=== PATIENT | male | born 1950 | race Caucasian/White ===

== ENCOUNTER 2025-05-18 22:04 | Emergency (ER) | payer MEDICARE, SELFPAY ==
[2025-05-18] VITALS (15 sets, daily range): BP systolic 121–149; BP diastolic 62–95; PULSE 67–95; RESP 14–23; TEMP 35.8; O2SAT 94–98
--- NOTE | 2025-05-18 22:00 | RT.EKG_ITS ---
APPROVED REPORT Exam: Resting ECG Reason for Exam: ams Patient Location: E HR:80 bpm ECG Measurements Heart Rate 80 AXIS OH 191 P 59 QRSd 87 QRS 16 QT 394 T 35 QTc 456 Conclusion Sinus rhythm...normal P axis, V-rate 60- 99 Low voltage, precordial leads...precordial leads <1.0mV PHysician: No STEMI
--- NOTE | 2025-05-18 22:15 | DI.CT_ITS ---
Exam(s) CT BRAIN NECK CTA EXAM: CT BRAIN NECK CTA CLINICAL HISTORY: stroke like symptomms, altered. TECHNIQUE: Imaging Protocol: Axial CT angiography was performed with multi- slice acquisition and multi-planar and/or 3D reconstructions. CONTRAST MATERIAL: Intravenous: Omnipaque 350 Contrast volume:70 mL COMPARISON: No exams were available for comparison FINDINGS: CTA Neck W: Aortic arch anatomy: There is some plaque evident at the origin of the left subclavian artery but without a tight stenosis at this level. Anterior circulation: Both common carotid arteries ascend with normal luminal diameters. At the level the carotid bulbs and proximal internal carotid arteries there is some calcified and noncalcified plaque but with out significant stenosis (estimated approximately 10-15 percent bilaterally). Above this level both internal carotid arteries in the upper neck appear unremarkable as well as in the skull base-carotid canals. Posterior circulation: The dominant right vertebral artery originates in conventional fashion off of the right subclavian artery with mild partially calcified plaque but no tight stenosis. The right vertebral artery ascends in the foramen transverse area M with a luminal diameter of 3 cm. At the skull base it is the main contributor to the formation of the basilar artery. The left vertebral artery is a thin vessel with maximum luminal diameter of 2 mm and originates as an independent vessel off the distal-medial aortic arch. CTA Brain W: Anterior circulation: Both internal carotid arteries are patent in the skull base-carotid canals as well as within the cavernous sinuses. There is some extra luminal air evident in the right cavernous sinus around the right intracavernous ICA, of questionable origin. There are no skull fractures evident. There is no sign ificant stenosis within the intracavernous internal carotid arteries. The supraclinoid aspects of these vessels are also patent as are both A1 segments and both anterior cerebral arteries and there is no evidence of aneurysm at the level the anterior communicating artery. Both middle cerebral arteries are patent with no evidence of significant stenosis nor intraluminal thrombus. There also no aneurysms of these vessels. Posterior circulation: The basilar artery ascends as a developmentally thin artery. Distally it gives patent superior cerebellar arteries bilaterally and above this level terminates as posterior cerebral arteries. Both A1 segments are developmentally thin and the posterior cerebral arteries are also supplied by posterior communicating arteries on both sides the aglyfn-sb-Astgtf.; Essentially persistent circulation. There is no evidence of aneurysm of the tip of the basilar artery nor elsewhere in the etlxze-nb-Pwbttf. CT BRAIN: There is no evidence of intracranial hemorrhage, mass effect, or shift of midline structures. There are no extra-axial fluid collections. Ventricles are not enlarged or shifted. There are no ring enhancing lesions in the brain and no abnormal meningeal enhancement. IMPRESSION: 1. Patent carotid arteries in the neck. Minimal plaque. No hemodynamically significant stenosis. No dissection 2. Diminutive left vertebral artery which arises in un conventional fashion off the distal most aortic arch. The right vertebral artery is developmentally dominant. 3. Patent intracranial arteries. Persistent circulation as described above. 4. There is abnormal non intraluminal air evident in the right cavernous sinus around the intracavernous right ICA. This is unrelated to the contrast injection as it was evident on the precontrast images. There is no obvious skull fracture. 5. There is incidentally noted anterior fusion hardware in the cervical spine at C3-4 level. Preliminary virtual Radiology report was reviewed Final report called by myself to the ER physician 05/19/2025 at 6:19 p.m. RADIATION DOSE DELIVERED: 2,250.04mGy.cm Total DLP DATA REPOSITORY: All CT scans at this facility are submitted to the National Radiology Data Registry (NRDR) Dose Index Registry (DIR) with the [employer] (ACR). RADIATION OPTIMIZATION: All CT scans at this facility use at least one of these dose optimization techniques: automated exposure control; mA and/or kV adjustment per patient size (includes targeted exams where dose is matched to clinical indication); or iterative reconstruction.
[2025-05-18 22:24] LABS: BE (Venous) 0 mmol/L (-2-3); HCO3 (Venous) 25 mmol/L (23-28); O2 Sat (Venous) 75 %; TCO2 (Venous) 22 mmol/L (24-29); pCO2 (Venous) 38 mmHg (41-51); pO2 (Venous) 40 mmHg
[2025-05-18 22:27] LABS: Abs Immature Grans 0.07 10^3/uL (0.0-0.06); HCT 36.9 % (40.0-50.0); HGB 12.4 g/dL (13.5-17.5); Immature Grans % 0.6 %; MCH 32.5 pg (27.0-33.0); MCHC 33.6 % (32.0-36.0); MCV 97 fL (80-95); MPV 9.7 fL (8.0-11.0); Platelet Count 174 10^3/uL (130-400); RBC 3.82 10^6/uL (4.36-5.78); RDW 12.0 % (11.8-14.1); RDW-SD 42.7 fL; WBC 11.36 10^3/uL (4.4-10.8)
--- NOTE | 2025-05-18 22:32 | W.ED.GENAD ---
Discharge Plan Disposition Patient Disposition: Home Condition: Good Discharge Details Clinical Impression: Acute dehydration, Mental status change resolved, Altered mental status, Alcohol intoxication Primary Care Provider: Salud,Local ED Provider: Stanislav Salmon Discharge Instructions Instructions: Dehydration, Adult (DC) Additional Instructions: At this time your workup has returned reassuring. Your CAT scan shows no evidence of stroke or other significant abnormality. As we discussed together it is important that you take at least a baby aspirin daily for your cardiac disease risks. Please follow-up closely with your primary care provider for reassessment. If any symptoms persist or return please return immediately for reevaluation. If you notice any worsening of your symptoms, or any new symptoms such as vomiting, diarrhea, fever, chills, shortness of breath, chest pain, numbness, weakness, or fainting , please return immediately to the emergency department for reevaluation. Please follow up with your primary care provider as soon as possible for reassessment and reevaluation. As always, it was a pleasure participating in your medical care today. Stand Alone Forms: Portal Information HPI General Date/Time Provider Initiated Documentation: 05/18/25 22:18. HPI Narrative: This is a 74-year-old male with a past medical history of cervical myelopathy, spinal stenosis in the lumbar region (and limited balance and mobility because of this, chronically walking with a walking stick), previous NSTEMI cardiac stents with coronary artery disease and stenting to the LAD in 2001, with repeat stenting in 2016, who receives his care at [facility], who presents today for evaluation of altered mental status. The patient was at his hunting camp today with his son, and had a normal day however while hiking up to put in a tree stand the son noticed that the patient did complain more being short of breath than normal. No complaint of chest pain at that time. In the evening around dinnertime the patient had a few glasses of alcohol, then around 830 he had a few puffs of a marijuana joint. Then at 845 the patient briefly fell asleep, and then when he woke up he became very confused, his eyes started looking in opposite directions, he began having garbled speech, and episodes/periods of unresponsiveness. These were brief and lasted for a 15 to 30 minutes. At 1 point the patient became quite unresponsive, the son yelled to him dad do not leave me, after which the patient immediately woke up and said I am not leaving you and was not acting quite normal after that. EMS was called, and on their arrival the patient's blood pressure was noted to be in the 70s to 80s systolic. He was given a liter of fluids and brought into the ER for further assessment. Currently the patient has no complaints whatsoever. He admits to some mild chronic aches in his joints but denies any headache, chest pain, numbness, tingling or weakness. He does not remember the event itself, but states that he feels fine at this time. He is certainly back towards his baseline now for family comparatively to where he was before. Patient denies any history of stroke otherwise. No other complaints at this time. No recent exertional chest discomfort. General Stated Complaint: AMS/LOC RACHID: 3 Exam Narrative Exam Narrative: 1.Const: Well-nourished, Well-developed, appearing stated age 2.Eyes: PERRL, no conjunctival injection, and symmetrical lids. 3.ENT: Atraumatic external nose and ears. Dry MM. Neck: Symmetric, trachea midline, No thyromegaly. 4.CVS: +S1/S2, Peripheral pulses 2+ and equal in all extremities. Brisk capillary refill in all extremities. 5.RESP: Unlabored respiratory effort. Clear to auscultation bilaterally. No wheezes rales or rhonchi 6.GI: Soft, Nontender/Nondistended, No hepatosplenomegaly. No guarding or rebound. 7.MSK: Normocephalic/Atraumatic, Extremities w/o deformity or ttp No cyanosis or clubbing, Normal movement of all extremities 8.Skin: Warm, Dry. No rashes or lesions. 9.Neuro: dictating machine typist II-XII grossly intact. Sensation grossly intact, no focal neurologic deficits. All 6 cardinal planes of vision are fully intact. No evidence of rotatory or vertical nystagmus. The patient demonstrated a normal banmam-njrw-hmyiyv, good dexterity. There was no evidence of dysdiadochokinesia. Patient was able to ambulate, however he had some difficulty with this however he states that he normally has difficulty with ambulation secondary to his spinal stenosis. There was no wide-based gait. Mdxk-xx-lwdq testing was normal. Sensation was intact bilaterally as well as muscle strength bilaterally for all extremities. Patient was able to verbalize butter cup with no slurring, or miss pronunciation. Patient is able to hold bilateral arms up for 5 seconds and there is no pronator drift, patient also holds legs up for 10 seconds bilaterally without any drop, sensation intact to light touch in hands and feet bilaterally. Cerebellar exam normal as tested by nljfbj-ojtf-pmszuw, lduz-nqtn-bany, rapid alternating movements, fine finger movements. Visual steven intact peripherally. Normal speech pattern and verbal understanding. 10.Psych: (AAO) x3. Appropriate mood and affect Dry Course Vital Signs Vital signs: Vital Signs Temperature 35.8 C L 05/18/25 22:03 Pulse 79 05/18/25 22:03 Respiratory Rate 18 05/18/25 22:03 Blood Pressure 121/62 05/18/25 22:03 Pulse Oximetry 96 05/18/25 22:03 Temperature 35.8 C L 05/18/25 22:03 Temperature Source Temporal Artery Scan 05/18/25 22:03 Pulse 79 05/18/25 22:03 Respiratory Rate 20 05/18/25 22:19 Respiratory Effort Normal 05/18/25 22:19 Respiratory Depth Normal 05/18/25 22:19 Respiratory Pattern Normal 05/18/25 22:19 Blood Pressure 121/62 05/18/25 22:03 Pulse Oximetry 96 05/18/25 22:03 Oxygen Delivery Method Room Air 05/18/25 22:03 Oxygen Flow Rate 0 05/18/25 22:03 Pain Level 4 05/18/25 22:03 Lab/Test Results Lab/Test Results: Laboratory Tests Range/Units 05/18/25 22:18 WBC (4.4-10.8) 10^3/uL 11.36 H RBC (4.36-5.78) 10^6/uL 3.82 L Hgb (13.5-17.5) g/dL 12.4 L Hct (40.0-50.0) % 36.9 L MCV (80-95) fL 97 H MCH (27.0-33.0) pg 32.5 MCHC (32.0-36.0) % 33.6 RDW (11.8-14.1) % 12.0 Plt Count (130-400) 10^3/uL 174 MPV (8.0-11.0) fL 9.7 Immature Gran % % 0.6 Neutrophils % % 74.6 Lymphocytes % % 13.9 Monocytes % % 8.6 Eosinophils % % 1.7 Basophils % % 0.6 Nucleated RBC % (0.0-0.3) % 0.0 Absolute Neutrophils (1.2-6.7) 10^3/uL 8.47 H Absolute Lymphocytes (1.2-3.4) 10^3/uL 1.58 Absolute Monocytes (0.1-0.8) 10^3/uL 0.98 H Absolute Eosinophils (0.0-0.7) 10^3/uL 0.19 Absolute Basophils (0.0-0.2) 10^3/uL 0.07 VBG pH (7.31-7.41) 7.42 H VBG pCO2 (41-51) mmHg 38 L VBG pO2 mmHg 40 VBG HCO3 (23-28) mmol/L 25 VBG Total CO2 (24-29) mmol/L 22 L VBG O2 Saturation % 75 VBG Base Excess (-2-3) mmol/L 0 VBG Lactate (<or=2.0) mmol/L 2.6 H* Medical Decision Making This is a 74-year-old male with a past medical history of cervical myelopathy, spinal stenosis in the lumbar region (and limited balance and mobility because of this, chronically walking with a walking stick), previous NSTEMI cardiac stents with coronary artery disease and stenting to the LAD in 2001, with repeat stenting in 2016, who receives his care at [facility], who presents today for evaluation of altered mental status. The patient was at his hunting camp today with his son, and had a normal day however while hiking up to put in a tree stand the son noticed that the patient did complain more being short of breath than normal. No complaint of chest pain at that time. In the evening around dinnertime the patient had a few glasses of alcohol, then around 830 he had a few puffs of a marijuana joint. Then at 845 the patient briefly fell asleep, and then when he woke up he became very confused, his eyes started looking in opposite directions, he began having garbled speech, and episodes/periods of unresponsiveness. These were brief and lasted for a 15 to 30 minutes. At 1 point the patient became quite unresponsive, the son yelled to him dad do not leave me, after which the patient immediately woke up and said I am not leaving you and was not acting quite normal after that. EMS was called, and on their arrival the patient's blood pressure was noted to be in the 70s to 80s systolic. He was given a liter of fluids and brought into the ER for further assessment. Currently the patient has no complaints whatsoever. He admits to some mild chronic aches in his joints but denies any headache, chest pain, numbness, tingling or weakness. He does not remember the event itself, but states that he feels fine at this time. He is certainly back towards his baseline now for family comparatively to where he was before. Patient denies any history of stroke otherwise. No other complaints at this time. No recent exertional chest discomfort. Exam demonstrates a well-appearing male, no focal neurologic deficits at this time on assessment. No numbness or tingling, no chest pain or headache. No signs of trauma. Patient states that he feels fine at this time. Differential for the previous episode is broad but includes intoxication combined with marijuana use, stroke or TIA, electrolyte abnormality, dehydration or infection. Blood pressure and heart rate have normalized after liter of normal saline bolus from EMS. Will get a CTA of the brain and neck, check for electrolyte dysfunction, will check for hypercarbia and hyperammonemia although he does not have any asterixis at this time. Will monitor closely and reassess. Will evaluate for cardiac etiology as well. 12:35 AM Laboratory workup demonstrates minimally elevated white count at 11.6, but no bandemia. Initial lactate was high but has normalized with fluids. VBG shows no acidosis or hypercarbia. Ammonia level normal. Electrolytes stable, slightly low potassium at 3.3. BUN is high at 24 with a creatinine of 1.1 reflective of dehydration which would correlate clinically with his hypotension that he was initially having in his earlier symptomatology. Serial troponins are normal, TSH is slightly high but he has a normal free T4. Alcohol level still mildly elevated. CT imaging is negative for acute process. No evidence of large stroke, bleed, or significant stenosis. On reassessment after fluids and shortening of sleep the patient feels at his baseline. He was able to get up and ambulate well at his baseline. He has no confusion or altered mental status. Differential is highest that the episode was a combination of alcohol, marijuana and dehydration. However I did discuss with him that there is still a chance that this could have been a TIA. Unfortunately we do not have any MRI available for the next 3 days. I did offer transfer which the patient notably declined. I did offer admission for observation which the patient notably declined. Patient has elected to go home. He will be going home with his son and staying with his son this evening. We did discuss risks and benefits of this and he understands. Additionally, the patient states that he is not on aspirin anymore stating that he stopped this a while back because sometimes his skin bleeds easily. He denies any history of intracranial bleed, GI bleed, or other significant bleeding risk factor that would signify a contraindication for antiplatelet use especially with his history of MIs and stenting. I have recommended that the patient restart his daily aspirin, and he states that he will talk about it further with his doctor at his next appointment. After a long conversation patient was willing to take an aspirin here today before he left, but states that he will talk with his PCP prior to restarting a prolonged prescription. I discussed the importance of these medications especially with his history, concern for potential but unlikely TIA, and his stenting history. Patient understands. Patient otherwise looks very well, will be discharged home with his son. Discussed red flags which to return. I have extensively reviewed the treatment plan and discharge instructions with the patient and their family. I have addressed all patient concerns at this time. The patient and family was made aware of what symptoms to monitor for that would warrant a return to the emergency department. Discussed the plan with the patient and family, they demonstrate verbal understanding and agreement with our assessment and plan at this time. The documentation in this chart was dictated using [employer] dictation software. Please excuse any dictation errors. FINDINGS: ANTERIOR CIRCULATION: Right internal carotid artery: Intracranial segment is patent with no significant stenosis or occlusion. No aneurysm. Right middle cerebral artery: No occlusion or significant stenosis. No aneurysm. Right anterior cerebral artery: No occlusion or significant stenosis. No aneurysm. Left internal carotid artery: Intracranial segment is patent with no significant stenosis. No aneurysm Left middle cerebral artery: No occlusion or significant stenosis. No aneurysm. Left anterior cerebral artery: No occlusion or significant stenosis. No aneurysm. POSTERIOR CIRCULATION: Right vertebral artery: No occlusion or significant stenosis. No aneurysm. Left vertebral artery: No occlusion or significant stenosis. No aneurysm. Basilar artery: No occlusion or significant stenosis. No aneurysm. 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 No occlusion or significant stenosis. No aneurysm. 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 No occlusion or significant stenosis. No aneurysm. Veins: Normal contrast opacification of the dural veins. HEAD: Brain: Mild volume loss within the brain parenchyma. No intracranial hemorrhage. No extra-axial fluid collection. No midline shift. No loss of ly-white differentiation to suggest an acute cortical infarct. Cerebral ventricles: No hydrocephalus. Bones: No evidence for acute skull fracture. Orbital cavities: Left lens replacement The intraorbital contents are otherwise normal appearance. Paranasal sinuses: Scattered mucosal thickening throughout the paranasal sinuses, most pronounced within the left anterior ethmoid sinus. The imaged paranasal sinuses are well aerated. No fluid levels. Mastoid air cells: The mastoid air cells are well aerated. Soft tissues: Unremarkable. IMPRESSION: 1. No large vessel occlusion within the intracranial arteries. Congenital vascular variation, described above. 2. No acute intracranial abnor FINDINGS: Right common carotid artery: No stenosis. No dissection or occlusion. Right internal carotid artery: Mild peripheral calcific atherosclerotic plaque within the carotid bulb and proximal ICA. No stenosis of the extracranial segment. No dissection or occlusion. Right external carotid artery: No occlusion or stenosis of the origin. Left common carotid artery: No stenosis. No dissection or occlusion. Left internal carotid artery: Mild peripheral calcific atherosclerotic plaque within the carotid bulb and proximal ICA. No stenosis of the extracranial segment. No dissection or occlusion. Left external carotid artery: No occlusion or stenosis of the origin. Right vertebral artery: Congenitally dominant. No stenosis. No dissection or occlusion. Left vertebral artery: Congenitally small. The left vertebral artery extends directly off the aorta, at the level of the distal aortic arch. No stenosis. No dissection or occlusion. Aorta: The great vessels at the level aortic arch opacify normally with contrast without stenosis or occlusion. Soft tissues: Normal. No significant soft tissue swelling. Bones/joints: No acute fracture. ACDF at C3-C4 with an anterior plate, vertebral body screws and intervertebral disc. Diffuse cervical spondylosis resulting in varying degrees of moderate to severe neural foraminal stenosis and mild spinal canal stenosis at C2-C3, C3-C4, C4-C5 and C6-C7. Lungs: The imaged lung apices are well aerated. IMPRESSION: No stenosis or occlusion within the extracranial/cervical arteries. Please see above dedicated CTA head report for more detailed description of the intracranial findings. REFERENCES: NASCET CRITERIA. The degree of stenosis in the cervical segment of the internal carotid artery is based on NASCET criteria. Normal is no stenosis. Mild is less than 50% stenosis. Moderate is 50- 69% stenosis. Severe is 70% to 99% tawny PFSH All Active Problems (Updated 05/19/25 @ 00:33 by Stanislav Salmon DO) Alcohol intoxication (Acute) Altered mental status (Acute) Mental status change resolved (Acute) Acute dehydration (Acute) Social History Smoking/Tobacco Use Status: Never Smoking risk assessment performed?: Yes Alcohol Intake: current Alcohol Intake frequency: 0-2 drinks per day Drug use: Rarely Substance use type: marijuana PAWSS Have you Been Recently Intoxicated or Drunk Within the Last 30 days?: No Have you Ever Experienced Previous Episodes of Alcohol Withdrawal?: No Have you ever Experienced Withdrawal Seizures?: No Have you ever Experienced Delirium Tremens(DT)s?: No Have you ever undergone Alcohol Rehabilitation Treatment (i.e, inpt ot outpatient treatment programs)?: No Have you ever Experienced Blackouts?: No Have you ever Combined Alcohol with other Downers within the last 90 days?: Yes Have you ever Combined Alcohol with any other Substance of Abuse during the last 90 days?: Yes Positive Blood Alcohol level on Presentation? [PCS.BAL]: Unable to Obtain Evidence of Increased Autonomic Activity (i.e. HR>120, tremor, sweating, agitation, nausea)?: No Result: 2
[2025-05-18 22:40] LABS: INR 0.9 (0.9-1.1); PTT Activated 22.6 sec (20.6-30.2); Prothrombin Time 9.5 sec (9.1-11.1)
[2025-05-18] MEDS: Omnipaque 350 MG/ML 100 ML BTL IJ (22:42)
[2025-05-18] MEDS: Normal Saline Flush 10 ML SYR IVP (22:44)
[2025-05-18] MEDS: Normal Saline - Diluent 50 ML VIAL IJ (22:44)
[2025-05-18 22:46] LABS: Troponin I 11 ng/L (<54)
[2025-05-18 22:48] LABS: ALT 18 U/L (10-49); AST 22 U/L (<34); Albumin 3.7 g/dL (3.4-5.0); Alkaline Phosphatase 54 U/L (46-116); Anion Gap 12.6 mmol/L (3-11); BUN 24 mg/dL (9-23); Bilirubin, Total 0.30 mg/dL (0.2-1.2); CO2 23.4 mmol/L (20.0-31.0); Calcium 8.6 mg/dL (8.3-10.6); Chloride 107 mmol/L (98-107); Glucose 112 mg/dL (74-106); Potassium 3.3 mmol/L (3.5-5.1); Sodium 143 mmol/L (136-145); Total Protein 6.1 g/dL (5.7-8.2)
[2025-05-18 22:50] LABS: TSH (W/Ref FT4) 5.89 uIU/mL (0.55-4.78)
[2025-05-18 23:06] LABS: Ammonia < 10 umol/L (11-32)
[2025-05-18] MEDS: Normal Saline 500 ML IV (23:11)
--- NOTE | 2025-05-18 23:12 | DI.VRAD_ITS ---
PROCEDURE INFORMATION: Exam: CTA Head Without And With Contrast, Arteriography Exam date and time: 05/18/2025 10:30 PM Age: 74 years old Clinical indication: Stroke-like symptoms; Altered mental status/memory loss; Additional info: Stroke like symptoms, altered TECHNIQUE: Imaging protocol: Computed tomographic angiography of the head without and with contrast. Exam focused on the arteries. 3D rendering (Not supervised by radiologist): MIP and/or 3D reconstructed images were created by the technologist. Radiation optimization: All CT scans at this facility use at least one of these dose optimization techniques: automated exposure control; mA and/or kV adjustment per patient size (includes targeted exams where dose is matched to clinical indication); or iterative reconstruction. Contrast material: [id number]; Contrast volume: 70 ml; Contrast route: INTRAVENOUS (IV); Other technique: STROKE PROTOCOL was implemented. COMPARISON: No relevant prior studies available. FINDINGS: ANTERIOR CIRCULATION: Right internal carotid artery: Intracranial segment is patent with no significant stenosis or occlusion. No aneurysm. Right middle cerebral artery: No occlusion or significant stenosis. No aneurysm. Right anterior cerebral artery: No occlusion or significant stenosis. No aneurysm. Left internal carotid artery: Intracranial segment is patent with no significant stenosis. No aneurysm. Left middle cerebral artery: No occlusion or significant stenosis. No aneurysm. Left anterior cerebral artery: No occlusion or significant stenosis. No aneurysm. POSTERIOR CIRCULATION: Right vertebral artery: No occlusion or significant stenosis. No aneurysm. Left vertebral artery: No occlusion or significant stenosis. No aneurysm. Basilar artery: No occlusion or significant stenosis. No aneurysm. 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 No occlusion or significant stenosis. No aneurysm. 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 No occlusion or significant stenosis. No aneurysm. Veins: Normal contrast opacification of the dural veins. HEAD: Brain: Mild volume loss within the brain parenchyma. No intracranial hemorrhage. No extra-axial fluid collection. No midline shift. No loss of ly-white differentiation to suggest an acute cortical infarct. Cerebral ventricles: No hydrocephalus. Bones: No evidence for acute skull fracture. Orbital cavities: Left lens replacement The intraorbital contents are otherwise normal appearance. Paranasal sinuses: Scattered mucosal thickening throughout the paranasal sinuses, most pronounced within the left anterior ethmoid sinus. The imaged paranasal sinuses are well aerated. No fluid levels. Mastoid air cells: The mastoid air cells are well aerated. Soft tissues: Unremarkable. IMPRESSION: 1. No large vessel occlusion within the intracranial arteries. Congenital vascular variation, described above. 2. No acute intracranial abnormality. ASSESSMENT: ASPECTS ([place] Stroke Program Early CT Score) is 10. PROCEDURE INFORMATION: Exam: CTA Neck Without And With Contrast Exam date and time: 05/18/2025 10:30 PM Age: 74 years old Clinical indication: Stroke-like symptoms; Altered mental status/memory loss; Additional info: Stroke like symptoms, altered TECHNIQUE: Imaging protocol: Computed tomographic angiography of the neck without and with contrast. Exam focused on the cervical segments of the vasculature. 3D rendering (Not supervised by radiologist): MIP and/or 3D reconstructed images were created by the technologist. Radiation optimization: All CT scans at this facility use at least one of these dose optimization techniques: automated exposure control; mA and/or kV adjustment per patient size (includes targeted exams where dose is matched to clinical indication); or iterative reconstruction. Contrast material: [id number]; Contrast volume: 70 ml; Contrast route: INTRAVENOUS (IV); COMPARISON: No relevant prior studies available. FINDINGS: Right common carotid artery: No stenosis. No dissection or occlusion. Right internal carotid artery: Mild peripheral calcific atherosclerotic plaque within the carotid bulb and proximal ICA. No stenosis of the extracranial segment. No dissection or occlusion. Right external carotid artery: No occlusion or stenosis of the origin. Left common carotid artery: No stenosis. No dissection or occlusion. Left internal carotid artery: Mild peripheral calcific atherosclerotic plaque within the carotid bulb and proximal ICA. No stenosis of the extracranial segment. No dissection or occlusion. Left external carotid artery: No occlusion or stenosis of the origin. Right vertebral artery: Congenitally dominant. No stenosis. No dissection or occlusion. Left vertebral artery: Congenitally small. The left vertebral artery extends directly off the aorta, at the level of the distal aortic arch. No stenosis. No dissection or occlusion. Aorta: The great vessels at the level aortic arch opacify normally with contrast without stenosis or occlusion. Soft tissues: Normal. No significant soft tissue swelling. Bones/joints: No acute fracture. ACDF at C3-C4 with an anterior plate, vertebral body screws and intervertebral disc. Diffuse cervical spondylosis resulting in varying degrees of moderate to severe neural foraminal stenosis and mild spinal canal stenosis at C2-C3, C3-C4, C4-C5 and C6-C7. Lungs: The imaged lung apices are well aerated. IMPRESSION: No stenosis or occlusion within the extracranial/cervical arteries. Please see above dedicated CTA head report for more detailed description of the intracranial findings. REFERENCES: NASCET CRITERIA. The degree of stenosis in the cervical segment of the internal carotid artery is based on NASCET criteria. Normal is no stenosis. Mild is less than 50% stenosis. Moderate is 50-69% stenosis. Severe is 70% to 99% stenosis. Total occlusion is no detectable patent lumen. Dictated and Authenticated by: Luna Handley MD. Orderin Luis Antonio [place] MD
[2025-05-18 23:51] LABS: Troponin I 13 ng/L (<54)
[2025-05-19] VITALS: PULSE 80; PULSE 85; RESP 15; O2SAT 96
[2025-05-19 00:01] VITALS: BP 130/57; PULSE 76; PULSE 79; RESP 14; O2SAT 95
[2025-05-19 00:10] VITALS: PULSE 95; RESP 17; O2SAT 97
[2025-05-19 00:16] VITALS: BP 151/71; PULSE 93; RESP 17; O2SAT 95
[2025-05-19 00:20] VITALS: PULSE 100; PULSE 99; RESP 25; O2SAT 97
[2025-05-19] MEDS: Aspirin 325 MG TAB PO (00:34)
--- NOTE | 2025-05-19 18:34 | W.ED.FU ---
Follow Up Plan: Received a call from radiology regarding CT brain over read. Per radiology there is abnormal non intraluminal air evident in the right cavernous sinus around the intracavernous right ICA. This is unrelated to the contrast injection as it was evident on the precontrast images. There is no obvious skull fracture. Note indicates the patient was discharged home. I have called the patient's contact number and left a message. I have also called his contact listed and left a message there. Awaiting return phone call.
== END 2025-05-19 00:41 | disposition home or self-care (01) ==
PROVIDERS: Emergency Provider Student in an Organized Health Care Education/Training Program
DX: E86.0 Dehydration (principal); R41.82 Altered mental status, unspecified; F10.929 Alcohol use, unspecified with intoxication, unspecified; Z86.59 Personal history of other mental and behavioral disorders; Z86.79 Personal history of other diseases of the circulatory system
CPT/HCPCS: 36415; 70496; 70498; 80053; 82805; 87637; 93005; 96360; 99285; 80320; 82140; 83605; 84439; 84443; 84484; 85025; 85610; 85730; 93010; 99284; J3490

== ENCOUNTER 2025-05-19 20:14 | Emergency (ER) | payer MEDICARE, SELFPAY ==
[2025-05-19 20:18] VITALS: BP 146/85; PULSE 98; RESP 20; TEMP 36.9; O2SAT 97
--- NOTE | 2025-05-19 20:30 | DI.CT_ITS ---
Exam(s) CT HEAD WO EXAM: CT HEAD WO CLINICAL HISTORY: prev scan sug r cav sinus air. TECHNIQUE: Imaging Protocol: Axial computed tomography images with coronal and sagittal reformatted images were created and reviewed COMPARISON: CT CT BRAIN NECK CTA from 05/18/2025 FINDINGS: There are no skull fractures. There is no fluid in the visualized paranasal sinuses. There is no residual gas/air detected in the right cavernous sinus, as was evident on yesterday's CT scan. There is no pneumocephalus elsewhere in the brain. There is no evidence of intracranial hemorrhage, mass effect, or shift of midline structures. There are no extra-axial fluid collections. The ventricles are not enlarged or shifted and there is no blood within the ventricular system nor within the basal cisterns. IMPRESSION: No acute intracranial findings on this noninfused CT scan of the brain. The previously present gas in the right cavernous sinus is no longer seen. There is presently no evidence of pneumocephalus. Preliminary [facility] report was reviewed. RADIATION DOSE DELIVERED: 871.62mGy.cm Total DLP DATA REPOSITORY: All CT scans at this facility are submitted to the National Radiology Data Registry (NRDR) Dose Index Registry (DIR) with the [employer] (A[employer]). RADIATION OPTIMIZATION: All CT scans at this facility use at least one of these dose optimization techniques: automated exposure control; mA and/or kV adjustment per patient size (includes targeted exams where dose is matched to clinical indication); or iterative reconstruction.
--- NOTE | 2025-05-19 20:59 | ED.GENADUL_ITS ---
Discharge Plan Disposition Patient Disposition: Home Condition: Fair Discharge Details Clinical Impression: Altered mental status Primary Care Provider: [facility],Local ED Provider: Stanislav Stallings Discharge Instructions Additional Instructions: The abnormality on your scan yesterday appears to have resolved. It is unclear whether or not this was artifact or something that improved. Given your normal exam at this time and lack of complaints I do not feel that you require admission or further investigation at this time. Follow-up with your primary care this coming week. Stand Alone Forms: Portal Information HPI General Date/Time Provider Initiated Documentation: 05/19/25 20:40 . HPI Narrative: This is a 74-year-old male presenting to the emergency department with a chief complaint of ED callback. Patient was seen here last night after an episode of altered mental status. Patient believes it was secondary to some marijuana he had smoked in association with some alcohol. He had an evaluation including a head CT which was resulted as negative and he was discharged home. CT was over read revealing extraluminal air adjacent to the right cavernous sinus. Patient reports that he has been fatigued, did not sleep well last night. He is otherwise well. No fevers. No headache. He states he has had a great deal of sinus congestion lately and has been using a Lainey pot. Apparently the device he was using was powered and was excessive in his estimation. He does not know if this is related. No vision or hearing changes. No confusion or speech changes. No numbness, tingling, weakness. No difficulty with ambulation. General Stated Complaint: Recheck RACHID: 3 Review of Systems All systems reviewed & are unremarkable except as noted in HPI and below Constitutional Constitutional: Reports system reviewed and no additional complaints, except as documented, Denies fever(s), Denies weakness and Denies weight loss Eyes Eyes: Denies blurry vision ENT Ears, Nose, Mouth, and Throat: Denies sore throat Comments: Nasal congestion Cardiovascular Cardiovascular: Denies chest pain, Denies palpitations and Denies dyspnea Respiratory Respiratory: Denies cough, Denies dyspnea and Denies wheezing Gastrointestinal Gastrointestinal: Denies abdominal pain, Denies diarrhea, Denies nausea and Denies vomiting Genitourinary Genitourinary: Denies hematuria and Denies dysuria Musculoskeletal Musculoskeletal: Denies back pain, Denies arthralgias and Denies numbness Neurologic Neurologic: Denies numbness and Denies weakness Psychiatric Psychiatric: Denies suicidal ideation Endocrine Endocrine: Denies palpitations Allergic/Immunologic Allergic/Immunologic: Denies wheezing Exam Const General: no acute distress and well groomed HENMT Mouth: oral mucosae normal and moist mucous membranes Throat: posterior oropharynx normal Eyes Conjunctivae: conjunctivae normal Sclera: sclerae normal Neck Neck: full ROM and No JVD Resp Effort & Inspection: normal respiratory effort Auscultation: clear to auscultation bilaterally Cardio Rate: regular rate Rhythm: regular rhythm Heart Sounds: no murmurs GI Palpation: soft and nontender Skin General skin exam: no rashes or lesions noted Neuro General: patient alert and patient oriented x3 Cranial Nerves: CN's II-XI intact bilaterally Cognition: normal cognition Speech: speech normal Motor: muscle tone normal throughout and strength 5/5 throughout Sensory Exam: no sensory deficits noted Coordination: [id number] test normal Extrem General: normal to inspection and full ROM Psych Appearance: grossly normal Mental Status: mental status grossly normal Speech and Movement: speech and movement normal Affect: normal affect Thought Process: normal Course Vital Signs Vital signs: Vital Signs Temperature 36.9 C 05/19/25 20:18 Pulse 98 H 05/19/25 20:18 Respiratory Rate 20 05/19/25 20:18 Blood Pressure 146/85 H 05/19/25 20:18 Pulse Oximetry 97 05/19/25 20:18 Temperature 36.9 C 05/19/25 20:18 Pulse 98 H 05/19/25 20:18 Respiratory Rate 20 05/19/25 20:18 Blood Pressure 146/85 H 05/19/25 20:18 Blood Pressure Position Sitting 05/19/25 20:18 Pulse Oximetry 97 05/19/25 20:18 Oxygen Delivery Method Room Air 05/19/25 20:18 Oxygen Flow Rate 0 05/19/25 20:18 Medical Decision Making This is a 74-year-old male called back for abnormal CT results. The patient was seen and examined by me. Old charts were reviewed and nursing notes were reviewed. This includes a CT over read from yesterday. Exam is benign at this time. CT will be repeated. Repeat CT shows no extraluminal air or abnormality. Is unclear what the abnormality was from yesterday, bit artifact or process that resolved., However the patient has no neurological complaints. Exam is completely normal. I do not believe he requires admission or further investigation at this time. He is to follow-up with his primary care this coming week. PFSH All Active Problems (Updated 05/19/25 @ 22:09 by Stanislav Stallings MD) Alcohol intoxication (Acute) Altered mental status (Acute) Mental status change resolved (Acute) Acute dehydration (Acute) Social History Smoking/Tobacco Use Status: Never Smoking risk assessment performed?: Yes Alcohol Intake: current Alcohol Intake frequency: 0-2 drinks per day Drug use: Rarely Substance use type: marijuana
[2025-05-19 21:00] VITALS: PULSE 74; O2SAT 96
--- NOTE | 2025-05-19 21:23 | DI.VRAD_ITS ---
PROCEDURE INFORMATION: Exam: CT Head Without Contrast Exam date and time: 05/19/2025 9:08 PM Age: 74 years old Clinical indication: Other: Prev scan sug R cav sinus air; Additional info: Prev scan sug R cav sinus air, 05/18 TECHNIQUE: Imaging protocol: Computed tomography of the head without contrast. COMPARISON: CT BRAIN NECK CTA 05/18/2025 10:30 PM FINDINGS: Brain: Slight prominence of cerebral sulci reflects mild cerebral atrophy. Brainstem and cerebellum are unremarkable and there is no evidence of acute transcortical infarction or recent intracranial hemorrhage. No residual gas is detected in the region of the right-sided cavernous sinus or throughout the remainder of the supratentorial compartment or posterior fossa. Cerebral ventricles: No midline shift or hydrocephalus. Paranasal sinuses: Grossly clear throughout. Mastoid air cells: Grossly clear bilaterally. Bones: Bony calvarium and skull base are intact and no acute fractures are detected. Soft tissues: Unremarkable. IMPRESSION: 1. Mild cerebral atrophy with no evidence of acute transcortical infarction, recent intracranial hemorrhage or hydrocephalus. No acute intracranial process is detected. 2. No residual gas is detected in the region of the right-sided cavernous sinus or throughout the remainder of the supratentorial compartment or posterior fossa. Dictated and Authenticated by: Miguel Angel Knapp MD. Orderin Chandrakant [place] MD
== END 2025-05-19 22:16 | disposition home or self-care (01) ==
PROVIDERS: Emergency Provider Emergency Medicine
DX: R41.82 Altered mental status, unspecified (principal)
CPT/HCPCS: 99283; 99284; 70450